=== PATIENT | female | born 1940 | race Caucasian/White ===

== ENCOUNTER 2017-10-25 11:52 | Emergency (ER) | payer MEDICARE, OTHER ==
[~2017-10-25] VITALS: Ht 165.1 cm; Wt 69.0 kg
[2017-10-25] MEDS ORDERED: Prozac20 MG (12:09)
[2017-10-25] MEDS ORDERED: ATEN25 (12:09)
[2017-10-25] MEDS ORDERED: OMEPRAZOLE MAGN20 MG PO (12:09)
[2017-10-25 12:22] LABS: BASOPHILS ABSOLUTE AUTO 0.03 K/mm3 (0.00-0.23); BASOPHILS PERCENT AUTO 0 % (0-2); EOSINOPHILS ABSOLUTE AUTO 0.01 K/mm3 (0.00-0.68); EOSINOPHILS PERCENT AUTO 0 % (0-6); Hematocrit 32.7 % (33.0-51.0); Hemoglobin 10.9 g/dL (11.5-16.0); IMMATURE GRAN ABSOLUTE AUTO 0.11 K/mm3 (0.00-0.10); IMMATURE GRAN PERCENT AUTO 1 % (0-1); LYMPHOCYTES ABSOLUTE AUTO 0.93 K/mm3 (0.84-5.20); LYMPHOCYTES PERCENT AUTO 5 % (21-46); MONOCYTES ABSOLUTE AUTO 1.56 K/mm3 (0.16-1.47); MONOCYTES PERCENT AUTO 8 % (4-13); Mean Corpuscular HGB 29.9 pg (26.0-34.0); Mean Corpuscular HGB Conc 33.3 g/dL (31.5-36.5); Mean Corpuscular Volume 90 fL (80-100); Mean Platelet Volume 11.5 fL (9.1-12.4); NEUTROPHILS ABSOLUTE AUTO 16.09 K/mm3 (1.96-9.15); NEUTROPHILS PERCENT AUTO 86 % (41-73); Platelet Count 229 K/mm3 (150-400); RDW Coefficient Variation 13.5 % (11.7-14.2); RDW Standard Deviation 44.7 fL (35.1-46.3); Red Blood Cell Count 3.65 M/mm3 (3.80-5.20); White Blood Cell Count 18.73 K/mm3 (4.00-11.30)
[2017-10-25 12:33] LABS: Alanine Aminotransfer (ALT/SGP 25 U/L (12-78); Albumin, Blood 3.1 g/dL (3.4-5.0); Albumin/Globulin Ratio 0.7 (0.8-1.8); Alk Phos 44 U/L (50-136); Anion Gap 9 mmol/L (6-16); Aspartate Aminotrans (AST/SGOT 24 U/L (12-37); Bilirubin, Total 0.3 mg/dL (0.1-1.0); Blood Urea Nitrogen 21 mg/dL (8-24); Bun/Creatinine Ratio 25.1 (12.0-20.0); CO2, Blood 25 mmol/L (21-32); Calcium, Blood 8.9 mg/dL (8.5-10.1); Chloride, Blood 98 mmol/L (98-108); Creatinine, Blood 0.84 mg/dL (0.40-1.00); Globulin, Blood 4.4 g/dL (2.2-4.0); Glomerular Filtration Rate >60 (60-); Glucose, Blood 131 mg/dL (70-99); Sodium, Blood 132 mmol/L (136-145); Total Protein, Blood 7.5 g/dL (6.4-8.2)
[2017-10-25 13:10] LABS: Influenza A Negative (NEGATIVE); Influenza B Negative (NEGATIVE)
[2017-10-25 15:17] LABS: Source, Urine Clean Catch
[2017-10-25 15:22] LABS: Appearance, Urine Hazy (Clear); Bilirubin, Urine Neg (Neg); Blood, Urine 4+ (Neg); Color, Urine Yellow (P-Yellow); Glucose Qualitative, Urine Neg (Neg); Ketones, Urine Neg (Neg); Leukocyte Esterase, Urine 1+ (Neg); Nitrite, Urine Neg (Neg); Protein, Urine 3+ (Neg); Urobilinogen, Urine NORM (Normal)
[2017-10-25 15:31] LABS: Bacteria Mod /hpf; Squamous Epithelial Cells Few /hpf (Few)
[2017-10-25 15:32] LABS: Amorphous Light (0-Heavy)
[2017-10-25] MEDS ORDERED: Prednisone20 MG PO (16:27)
[2017-10-25] MEDS ORDERED: LEVO750 PO (16:27)
[2017-10-25] MEDS ORDERED: ALBU90OI INH (16:27)
== END 2017-10-25 16:55 | disposition home or self-care (01) ==
LOC: ER 11:52
PROVIDERS: Internal Medicine; Physician Assistant; Psychiatry & Neurology Psychiatry
DX: N39.0 Urinary tract infection, site not specified (principal); J44.1 Chronic obstructive pulmonary disease with (acute) exacerbation; Z88.8 Allergy status to other drugs, medicaments and biological substances; Z79.899 Other long term (current) drug therapy; I10 Essential (primary) hypertension; F17.210 Nicotine dependence, cigarettes, uncomplicated
CPT/HCPCS: 36415; 71046; 80053; 81001; 83605; 85025; 87040; 87077; 87086; 87186; 87804; 94640; 96374; 96375; 99283; J2930; J7030

== ENCOUNTER 2019-01-31 06:04 | Day surgery (SDC) | payer MEDICARE, OTHER ==
[~2019-01-31] VITALS: Ht 165.1 cm; Wt 68.6 kg
[~2019-01-31 06:04] MED LIST: ALBU90OI INH; ATEN25; LEVO750 PO; LOSA50 PO; OMEPRAZOLE MAGN20 MG PO; Omeprazole20 M1 PO; Prednisone20 MG PO; Prozac20 MG
--- NOTE | 2019-01-31 09:26 | NUR ---
01/31/19 0926 Luly Bishop PT INTO RECLINER UPON ARRIVAL TO SDU. PT TOLERATING FLUIDS AND COOKIES WELL. PT DENIES PAIN AND NAUSEA. ICE AND ELEVATION IMPLEMENTED IN RECOVERY. PT AWARE CELESTINE IS AT THE PHARMACY.
== END 2019-01-31 10:05 | disposition home or self-care (01) ==
LOC: ORSCSDS 06:04
PROVIDERS: Podiatrist Foot & Ankle Surgery
PROC: 0LBP0ZZ Excision of Left Lower Leg Tendon, Open Approach (ICD-10-PCS; principal; 2019-01-31 07:30)
PROC: 0LQP0ZZ Repair Left Lower Leg Tendon, Open Approach (ICD-10-PCS; principal; 2019-01-31 07:30)
DX: M65.262 Calcific tendinitis, left lower leg (principal); M24.573 Contracture, unspecified ankle; I10 Essential (primary) hypertension; Z87.891 Personal history of nicotine dependence; Z79.899 Other long term (current) drug therapy
CPT/HCPCS: C1713; J0690; J1100; J2405; J2704; J3010; J7120

== ENCOUNTER → 2020-12-09 | Outpatient (CLI) | payer MEDICARE, OTHER | END | disposition home or self-care (01) | LOC: LAB SHORT 08:13 → PLD 08:13 | DX: D48.5 Neoplasm of uncertain behavior of skin (principal) | CPT/HCPCS: 88304 ==

== ENCOUNTER → 2024-07-30 | Outpatient (CLI) | payer MEDICARE, OTHER ==
[2024-07-30 13:28] LABS: BASOPHILS ABSOLUTE AUTO 0.08 K/mm3 (0.00-0.23); BASOPHILS PERCENT AUTO 1 % (0-2); EOSINOPHILS ABSOLUTE AUTO 0.66 K/mm3 (0.00-0.68); EOSINOPHILS PERCENT AUTO 7 % (0-6); Hematocrit 40.2 % (33.0-51.0); Hemoglobin 13.1 g/dL (11.5-16.0); IMMATURE GRAN ABSOLUTE AUTO 0.03 K/mm3 (0.00-0.10); IMMATURE GRAN PERCENT AUTO 0 % (0-1); LYMPHOCYTES ABSOLUTE AUTO 1.86 K/mm3 (0.84-5.20); LYMPHOCYTES PERCENT AUTO 20 % (21-46); MONOCYTES ABSOLUTE AUTO 0.68 K/mm3 (0.16-1.47); MONOCYTES PERCENT AUTO 7 % (4-13); Mean Corpuscular HGB 30.5 pg (26.0-34.0); Mean Corpuscular HGB Conc 32.6 g/dL (31.5-36.5); Mean Corpuscular Volume 94 fL (80-100); Mean Platelet Volume 11.7 fL (9.1-12.4); NEUTROPHILS ABSOLUTE AUTO 6.07 K/mm3 (1.96-9.15); NEUTROPHILS PERCENT AUTO 65 % (41-73); Platelet Count 344 K/mm3 (150-400); RDW Coefficient Variation 14.2 % (11.7-14.2); RDW Standard Deviation 48.2 fL (35.1-46.3); Red Blood Cell Count 4.29 M/mm3 (3.80-5.20); White Blood Cell Count 9.38 K/mm3 (4.00-11.30)
[2024-07-30 14:09] LABS: Alanine Aminotransfer (ALT/SGP 18 U/L (12-78); Albumin, Blood 3.7 g/dL (3.4-5.0); Albumin/Globulin Ratio 0.9 (0.8-1.8); Alk Phos 56 U/L (50-136); Anion Gap 9 mmol/L (3-11); Aspartate Aminotrans (AST/SGOT 14 U/L (12-37); Bilirubin, Total 0.3 mg/dL (0.1-1.0); Blood Urea Nitrogen 18 mg/dL (8-24); Bun/Creatinine Ratio 22.6 (12.0-20.0); CHOL/HDL RATIO 3.7; CO2, Blood 30 mmol/L (21-32); Calcium, Blood 9.9 mg/dL (8.5-10.1); Chloride, Blood 107 mmol/L (98-108); Cholesterol 172 mg/dL (50-200); Globulin, Blood 3.9 g/dL (2.2-4.0); Glomerular Filtration Rate 74 (60-); Glucose, Blood 114 mg/dL (70-99); HDL Cholesterol 46 mg/dL (>39); Low Density Lipoprotein Chol 90 mg/dL (0-110); Potassium, Blood 4.8 mmol/L (3.5-5.5); Sodium, Blood 141 mmol/L (136-145); Total Protein, Blood 7.6 g/dL (6.4-8.2); Triglycerides 178 mg/dL (30-160); Very Low Density Lipoprot Chol 35 mg/dL (6-32)
== END | disposition home or self-care (01) ==
LOC: LAB SHORT 09:45 → LAB 09:45
PROVIDERS: Nurse Practitioner Family
DX: E78.5 Hyperlipidemia, unspecified (principal); I10 Essential (primary) hypertension; R73.03 Prediabetes
CPT/HCPCS: 80053; 80061; 83036; 85025

== ENCOUNTER → 2025-04-02 | Outpatient (CLI) | payer MEDICARE, OTHER ==
[~2025-04-02] MED LIST changes: +CIPR500 PO; +FAMO20 PO; +MASOPHEN500 M2 PO; +NEURONTIN300 MG PO; +PHOS-NAK PO; +PROZAC40 MG PO; +SPIRIVA RESPIMAT4 G3 INH; +VISBIOME 112.51 EACH PO
== END ==
LOC: LAB 13:51 → LAB SHORT 13:51
DX: R39.15 Urgency of urination (principal)
CPT/HCPCS: 87077; 87086; 87186

== ENCOUNTER → 2025-06-18 | Outpatient (CLI) | payer MEDICARE, OTHER | LOC: LAB 17:46 → LAB SHORT 17:46 | DX: D72.829 Elevated white blood cell count, unspecified (principal); R39.9 Unspecified symptoms and signs involving the genitourinary system | CPT/HCPCS: 87077; 87086; 87186 ==

== ENCOUNTER → 2025-08-17 | Outpatient (CLI) | payer MEDICARE, OTHER ==
[2025-08-18 13:58] LABS: Campylobacter Sp Not Detected (NOT DETECT); E. Coli O157 Not Detected (NOT DETECT); Enteroaggregative E. coli-EAEC Not Detected (NOT DETECT); Enteropathogenic E. coli-EPEC Not Detected (NOT DETECT); Enterotoxigenic E. coli-ETEC Not Detected (NOT DETECT); Salmonella Sp Not Detected (NOT DETECT); Shiga Toxin-prod E. coli-STEC Not Detected (NOT DETECT); Shigella/Enteroin E. coli-EIEC Not Detected (NOT DETECT); Vibrio Sp Not Detected (NOT DETECT)
== END | disposition home or self-care (01) ==
LOC: LAB SHORT 09:13 → LAB 09:13
PROVIDERS: Nurse Practitioner Family
DX: R19.7 Diarrhea, unspecified (principal)
CPT/HCPCS: 87507